=== PATIENT | female | born 1995 ===

== ENCOUNTER → 2018-11-25 | Outpatient (REF) | payer SELFPAY ==
[2018-11-25 20:42] LABS: CHLAMYDIA DNA AMPLIFICATION NEGATIVE (NEGATIVE); GC DNA AMPLIFICATION NEGATIVE (NEGATIVE)
== END ==
LOC: M LAB REF 10:37
PROVIDERS: ATTEND Physician Assistant
DX: N76.0 Acute vaginitis (principal)